=== PATIENT | male | born 1965 | race African-American/Black ===

== ENCOUNTER 2018-02-09 05:24 | Emergency (ER) | payer OTHER ==
[~2018-02-09] VITALS: Ht 177.8 cm; Wt 81.6 kg
[~2018-02-09 05:24] MED LIST: AZITHROMYCIN250 MG ORAL; IBUPROFEN600 MG ORAL
[2018-02-09] MEDS ORDERED: NKM (05:41)
[2018-02-09] MEDS ORDERED: Tetanus/Diptheria/Pertussis Vaccine 0.5ml Syr IM ONE (05:45)
[2018-02-09 06:00] VITALS: BP 118/72
--- NOTE | 2018-02-09 06:03 | Emergency Room Report ---
History of Present Illness General Chief Complaint: Laceration Source: Patient Present Illness HPI Patient is a 52-year-old male who presented after increased left forearm pain. Patient reportedly had been attempting to climb a fence. The he reported having injury to his left forearm. He denies any numbness or weakness. He denies any past medical history. Patient stated that he is right-hand dominant. He reports injury to the palm of his right hand as well as. He denies any pulsatile bleeding. He denies any problems with moving his hand. He reports having prior injury to his left small finger which is left some residual contracture. Allergies: Coded Allergies: No Known Allergies (Unverified , 09/21/12) Patient History Past Medical History: see triage record Reviewed Nursing Documentation: PMH: Agreed; PSxH: Agreed Nursing Documentation-PMH Hx Cardiac Problems: No Hx Hypertension: No Review of Systems All Other Systems: negative except mentioned in HPI Physical Exam Vital Signs Date Time Temp Pulse Resp B/P (MAP) Pulse Ox O2 Delivery O2 Flow Rate FiO2 02/09/18 05:38 98.1 73 16 120/71 94 Room Air 98.1 General Appearance: well appearing, no apparent distress, alert, GCS 15, non- toxic Head: normocephalic, atraumatic ENT: hearing grossly normal, normal voice Neck: full range of motion, supple Respiratory: no respiratory distress, speaking full sentences Gastrointestinal: normal inspection Musculoskeletal: no calf tenderness Neurologic: alert, oriented x3, responsive, normal gait Psychiatric: mood/affect normal Skin: laceration - 10 cm laceration to volar surface of mid forearm transverse. small adjacent abrasion similar in size. right hand with 1cm superficial laceration Medical Decision Making Diagnostic Impression: Primary Impression: Forearm laceration Additional Impression: Laceration of hand ER Course Patient presented for laceration. Differential diagnoses included foreign body , nerve injury, arterial injury among others. Patient has a benign exam and does not appear to require any further imaging or laboratory testing at this time. Patient noted to have full range of motion to the left hand with exception of the small finger which is unable to flex normally. The patient states this is chronic. Laceration was noted in the forearm approximately 10 cm. The patient's laceration was irrigated. Skin was prepped and the forearm laceration was closed with skin staple. The patient is advised to follow up with primary care doctor in 2-3 days for wound check. Staple removal in 2 weeks. Patient is advised to return if any worsening condition or if any changes in status that are concerning. This report is dictated with [employer] front window cashier software which may occasionally lead to discrepancies related to use of this software. Last Vital Signs Date Time Temp Pulse Resp B/P (MAP) Pulse Ox O2 Delivery O2 Flow Rate FiO2 02/09/18 05:38 98.1 73 16 120/71 94 Room Air 98.1 Status: improved Disposition: HOME, SELF-CARE Condition: Stable Scripts Ibuprofen* (MOTRIN*) 600 Mg Tablet 600 MG ORAL Q8H PRN for For Pain, #30 TAB 0 Refills Prov: Rm Fileds 02/09/18 Cephalexin* (KEFLEX*) 500 Mg Capsule 500 MG ORAL Q6H, #28 CAP 0 Refills Prov: Rm Fileds 02/09/18 Rm Fields Feb 09, 2018 06:03
[2018-02-09] MEDS ORDERED: Bacitracin Oint UD TOPIC ONE (06:15)
[2018-02-09] MEDS ORDERED: KEFLEX500 MG ORAL (06:23)
[2018-02-09] MEDS ORDERED: IBUPROFEN600 MG ORAL (06:23)
[2018-02-09 06:48] VITALS: BP 118/72
== END 2018-02-09 06:48 | disposition home or self-care (01) ==
LOC: EMR 05:53
DX: S51.812A Laceration without foreign body of left forearm, initial encounter (principal); Z23 Encounter for immunization; S61.411A Laceration without foreign body of right hand, initial encounter; X58.XXXA Exposure to other specified factors, initial encounter; Y93.39 Activity, other involving climbing, rappelling and jumping off; Y92.9 Unspecified place or not applicable
CPT/HCPCS: 12004; 90471; 90715; 99284; Z7502

== ENCOUNTER 2018-06-07 06:28 | Emergency (ER) | payer OTHER ==
[~2018-06-07] VITALS: Ht 180.3 cm; Wt 83.9 kg
[~2018-06-07 06:28] MED LIST changes: +KEFLEX500 MG ORAL; +NKM
[2018-06-07 06:51] VITALS: BP 127/80
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
[2018-06-07] MEDS ORDERED: TESSALON PERLE100 MG ORAL (07:16)
[2018-06-07 07:25] VITALS: BP 125/75
== END 2018-06-07 07:25 | disposition home or self-care (01) ==
LOC: EMR 06:54
DX: M79.642 Pain in left hand (principal); M79.641 Pain in right hand; R05 Cough; R09.81 Nasal congestion; M79.1 Myalgia; F10.10 Alcohol abuse, uncomplicated
CPT/HCPCS: 99283